=== PATIENT | female | born 1980 | race Two or more races ===

== ENCOUNTER 2024-10-02 07:45 | Inpatient (IN) | payer OTHER ==
[~2024-10-02] VITALS: Ht 172.7 cm; Wt 83.0 kg
[2024-10-02] MEDS ORDERED: VITAMIN D (08:47)
[2024-10-02] MEDS ORDERED: PROTANDIM NRF (08:48)
[2024-10-02] MEDS ORDERED: [UNRECOGNIZED DRUG - OTHER] (08:49)
[2024-10-02 08:52] LABS: HEMATOCRIT 41.6 % (36.0-45.00); HEMOGLOBIN 14.1 g/dL (12.0-15.00); MEAN CELL VOLUME 94.1 fL (80.00-100.00); MEAN CORPUSCULAR HEMOGLOBIN 31.9 pg (27.00-32.0); MEAN CORPUSCULAR HGB CONC 33.9 g/dl (32.0-36.0); PLATELET COUNT 314 K/uL (150-450); RED BLOOD COUNT 4.42 M/uL (4.00-6.00); RED CELL DISTRIBUTION WIDTH 12.2 % (11.5-14.5)
[2024-10-02 09:16] LABS: PARTIAL THROMBOPLASTIN TIME 27.6 SECONDS (22.0-34.0); PROTHROMBIN TIME 10.9 SECONDS (9.0-11.5)
[2024-10-02 09:26] LABS: URINE APPEARANCE Clear; URINE BILIRRUBIN Negative (NEGATIVE); URINE BLOOD Small; URINE COLOR Yellow; URINE GLUCOSE Negative (NEGATIVE); URINE KETONE Negative (NEGATIVE); URINE LEUKOCYTE Large; URINE NITRATE Negative; URINE PROTEIN Negative (NEGATIVE); URINE UROBILINOGEN 0.2 E.U./dl
[2024-10-02 09:27] LABS: URINE BACTERIA 4592.2 uL (0.0-1933); URINE EPITHELIAL CELLS 59.2 uL (0.0-38.8); URINE RBC 26.6 uL (0.0-20.8); URINE WBC 423.9 uL (0.0-23.2)
[2024-10-02 09:51] LABS: BILIRUBIN TOTAL 1.01 mg/dL (0.3-1.2); CALCIUM 9.5 mg/dL (8.5-10.1); CREATININE SERUM 0.64 mg/dL (0.55-1.02); GFR 101.76; GLOBULINA 3.7 G/DL (2.4-3.5); POTASSIUM 4.05 mEq/L (3.5-5.1); TOTAL PROTEIN 7.7 gm/dL (6.4-8.2)
[2024-10-10] MEDS ORDERED: POVIDONE-IODINE 118 ML BOTT TOP ONE (06:57)
[2024-10-10] MEDS ORDERED: CEFAZOLIN SODIUM 1,000 MG VIAL ONE (06:57)
[2024-10-10] MEDS ORDERED: DEXAMETHASONE SODIUM PHOSPHATE 4 MG/ML VIAL ONE (07:37)
[2024-10-10] MEDS ORDERED: ONDANSETRON HCL 2 MG/ML VIAL IV PRN (09:15)
[2024-10-10] MEDS ORDERED: ENALAPRILAT DIHYDRATE 1.25 MG/ML VIAL IV PRN (09:15)
[2024-10-10] MEDS ORDERED: MORPHINE SULFATE 4 MG/ML VIAL IV ONE (09:35)
[2024-10-10 16:00] VITALS: BP 108/80; O2SAT 97
[2024-10-10] MEDS ORDERED: ACETAMINOPHEN 500 MG GEL..CAP PO SCH (17:00)
[2024-10-10] MEDS ORDERED: TRAMADOL HCL 50 MG TABLET PO SCH (17:00)
[2024-10-10] MEDS ORDERED: GABAPENTIN 100 MG CAPSULE PO SCH (17:00)
[2024-10-10] MEDS ORDERED: CYCLOBENZAPRINE HCL 5 MG TABLET PO SCH (17:00)
[2024-10-11 00:59] VITALS: BP 107/69; O2SAT 98
[2024-10-11 08:00] VITALS: BP 106/75; O2SAT 99
== END 2024-10-11 14:52 | disposition home or self-care (01) | DRG 627 ==
LOC: SURH 10-10 05:18 → O/R 10-10 05:18 → SURH 10-10 07:45
PROVIDERS: ADMIT Surgery; ATTEND Surgery
PROC: 0GTG0ZZ Resection of Left Thyroid Gland Lobe, Open Approach (ICD-10-PCS; principal; 2024-10-10 16:45)
DX: C73 Malignant neoplasm of thyroid gland (principal)

== ENCOUNTER 2024-12-23 07:15 | Inpatient (IN) | payer OTHER ==
[~2024-12-23] VITALS: Ht 180.3 cm; Wt 83.0 kg
[~2024-12-23 07:15] MED LIST: PROTANDIM NRF; VITAMIN D; [UNRECOGNIZED DRUG - OTHER]
[2024-12-23 07:59] VITALS: BP 115/70; BP 121/81
[2024-12-23 08:46] LABS: BASO % 0.5 % (0.1-1.2); EOS # 0.03 (0.04-0.54); EOS % 0.5 % (0.7-7.0); LYMPH # 1.09 (1.18-3.74); LYMPH % 17.2 % (19.3-53.1); MEAN PLATELET VOLUME 9.90 fl (9.4-12.4); MONO # 0.32 (0.24-0.82); MONO % 5.1 % (4.7-12.5); NEUT # 4.84 (1.56-6.13); NEUT % 76.5 % (34.0-71.1); RED CELL DISTRIBUTION WIDTH 11.9 % (11.6-14.4)
[2024-12-23 08:48] LABS: URINE APPEARANCE Clear; URINE BILIRRUBIN Negative (NEGATIVE); URINE BLOOD Small; URINE COLOR Yellow; URINE GLUCOSE Negative (NEGATIVE); URINE KETONE Negative (NEGATIVE); URINE LEUKOCYTE Large; URINE NITRATE Negative; URINE PROTEIN Negative (NEGATIVE); URINE UROBILINOGEN 0.2 E.U./dl
[2024-12-23 08:52] LABS: URINE BACTERIA 2405.9 uL (0.0-1933); URINE EPITHELIAL CELLS 51.8 uL (0.0-38.8); URINE RBC 15.5 uL (0.0-20.8); URINE WBC 176.5 uL (0.0-23.2)
[2024-12-23 08:57] LABS: URINE CAST 0.14 uL (0.0-1.40)
[2024-12-23 09:04] LABS: INR 0.97
[2024-12-23 09:23] LABS: ALT/SGPT 46.0 U/L (12-78); AST/SGOT 24.0 U/L (15-37); BILIRUBIN TOTAL 0.54 mg/dL (0.3-1.2); BUN CREA RATIO 14.0 (7.0-25.0); CREATININE SERUM 0.66 mg/dL (0.55-1.02); GFR 97.74; GLOBULINA 3.6 G/DL (2.4-3.5); GLUCOSE FASTING 103.0 mg/dL (65-100); OSMOLALITY SERUM 282.0 MOSM/KG (275-295)
[2024-12-31] MEDS ORDERED: CEFAZOLIN SODIUM 1,000 MG VIAL ONE (07:31)
[2024-12-31] MEDS ORDERED: DEXAMETHASONE SODIUM PHOSPHATE 4 MG/ML VIAL ONE (09:50)
[2024-12-31] MEDS ORDERED: ONDANSETRON HCL 2 MG/ML VIAL IV PRN (11:45)
[2024-12-31] MEDS ORDERED: ENALAPRILAT DIHYDRATE 1.25 MG/ML VIAL IV PRN (11:45)
[2024-12-31] MEDS ORDERED: MORPHINE SULFATE 4 MG/ML VIAL IV ONE ×2 (12:45)
[2024-12-31] MEDS ORDERED: ACETAMINOPHEN 500 MG GEL..CAP PO SCH (17:00)
[2024-12-31] MEDS ORDERED: CYCLOBENZAPRINE HCL 5 MG TABLET PO SCH (17:00)
[2024-12-31] MEDS ORDERED: TRAMADOL HCL 50 MG TABLET PO SCH (17:00)
[2024-12-31] MEDS ORDERED: LIDOCAINE HCL 30 ML,MAG HYDROX/ALUMINUM HYD/SIMETH 30 ML,DIPHENHYDRAMINE HCL 75 MG MM SCH (17:00)
[2024-12-31] MEDS ORDERED: ACETAMINOPHEN 500 MG GEL..CAP PO ONE (17:57)
[2024-12-31 18:43] VITALS: BP 115/70
[2024-12-31] MEDS ORDERED: PANTOPRAZOLE SODIUM 40 MG/VIAL VIAL IV PUSH SCH (21:00)
[2024-12-31] MEDS ORDERED: MAG HYDROX/ALUMINUM HYD/SIMETH 30 ML BLIST.PACK PO ONE (23:35)
[2025-01-01 00:39] VITALS: BP 100/62
[2025-01-01 05:56] VITALS: BP 115/78
[2025-01-01] MEDS ORDERED: LEVOTHYROXINE SODIUM 125 MCG TABLET PO SCH (06:00)
[2025-01-01 08:03] VITALS: BP 108/72
== END 2025-01-01 09:23 | disposition home or self-care (01) | DRG 627 ==
LOC: SURH 12-31 07:15 → O/R 12-31 07:53 → SURH 12-31 14:45 → OB/GYN 12-31 15:57
PROVIDERS: ADMIT Surgery; ATTEND Surgery
PROC: 0GTH0ZZ Resection of Right Thyroid Gland Lobe, Open Approach (ICD-10-PCS; principal; 2024-12-31 14:45)
DX: C73 Malignant neoplasm of thyroid gland (principal)